=== PATIENT | male | born 1965 | race Hispanic/Latino ===

== ENCOUNTER 2020-03-12 13:44 | Emergency (ER) | payer OTHER, MEDICARE ==
[~2020-03-12] VITALS: Ht 180.3 cm; Wt 100.0 kg
[~2020-03-12 13:44] MED LIST: ANUSOL-HC25 MG RE; CENTRU3 PO; CLARITIN10 MG PO; HYOSCYAMINE0.125 MG OR; LORATADINE10 M1; METOPROL TAR25 MG PO; NITROSTAT0.4 MG SL; SIMVASTATIN20 MG PO; TYLENOL325 MG PO; TYLENOL500 MG PO; VITAMIN D32000 UNI2 PO; ZOCOR10 MG PO; ZOLOFT100 MG PO
[2020-03-12] MEDS ORDERED: SERTRALINE HCL25 MG PO (15:16)
[2020-03-12] MEDS ORDERED: CARAFATE1 GM PO (15:17)
[2020-03-12] MEDS ORDERED: PROTONIX40 MG PO (15:17)
[2020-03-12] MEDS ORDERED: GABAPENTIN300 M2 PO (15:19)
[2020-03-12] MEDS ORDERED: SIMVASTATIN40 MG PO (15:19)
[2020-03-12 15:20] VITALS: BP 130/82
== END 2020-03-12 15:20 | disposition home or self-care (01) | DRG 552 ==
LOC: ED 13:44
DX: S16.1XXA Strain of muscle, fascia and tendon at neck level, initial encounter (principal); S80.212A Abrasion, left knee, initial encounter; I10 Essential (primary) hypertension; I25.10 Atherosclerotic heart disease of native coronary artery without angina pectoris; E78.5 Hyperlipidemia, unspecified; V48.5XXA Car driver injured in noncollision transport accident in traffic accident, initial encounter; Z93.3 Colostomy status; Z85.038 Personal history of other malignant neoplasm of large intestine

== ENCOUNTER 2020-09-21 15:45 | Emergency (ER) | payer MEDICARE, MEDICAID ==
[~2020-09-21] VITALS: Ht 180.3 cm; Wt 91.0 kg
[~2020-09-21 15:45] MED LIST changes: +CARAFATE1 GM PO; +GABAPENTIN300 M2 PO; +PROTONIX40 MG PO; +SERTRALINE HCL25 MG PO; +SIMVASTATIN40 MG PO
[2020-09-21 16:32] VITALS: BP 129/71
== END 2020-09-21 16:30 | disposition left against medical advice (07) ==
LOC: ED 15:45 → LWOBS 16:29 → ED 16:30
DX: Z91.19 Patient's noncompliance with other medical treatment and regimen (principal)